=== PATIENT | male | born 1950 | race Two or more races ===

== ENCOUNTER 2018-09-19 12:04 | Inpatient (IN) | payer OTHER ==
[2018-09-19 14:58] VITALS: BMI 33.4
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
[2018-09-19] MEDS ORDERED: ONDANSETRON *ODT* 4 MG TABLET SL PRN (23:03)
[2018-09-19] MEDS ORDERED: MELATONIN 5 MG TABLETS PO PRN (23:03)
[2018-09-19] MEDS ORDERED: METHOCARBAMOL 500 MG TABLET PO PRN (23:03)
[2018-09-19] MEDS ORDERED: DICYCLOMINE HCL 10 MG CAPSULE PO PRN (23:03)
[2018-09-19] MEDS ORDERED: guaiFENesin 200 MG/10 ML 10 ML UNIT-DOSE CUPS PO PRN (23:03)
[2018-09-19] MEDS ORDERED: P-EPHED 60MG/TRIPROLIDI 2.5MG TABLET PO PRN (23:03)
[2018-09-19] MEDS ORDERED: IBUPROFEN 400 MG TABLET (FP) PO PRN ×2 (23:03)
[2018-09-19] MEDS ORDERED: MENTHOL/PHENOL 1 EACH UD MM PRN (23:03)
[2018-09-19] MEDS ORDERED: ACETAMINOPHEN 325 MG TABLET (FP) PO PRN ×2 (23:03)
[2018-09-19] MEDS ORDERED: MAGNESIUM CITRATE 300 ML BOTTLE PO PRN (23:03)
[2018-09-19] MEDS ORDERED: hydrOXYzine PAMOATE 25 MG CAPSULE (FP) PO PRN (23:03)
[2018-09-19] MEDS ORDERED: BISMUTH SUBSALICYLATE 524 MG/30 ML UD PO PRN (23:03)
[2018-09-19] MEDS ORDERED: chlordiazePOXIDE HCL 10 MG CAPSULE PO PRN (23:03)
[2018-09-19] MEDS ORDERED: NICOTINE POLACRILEX 2 MG GUM BUC PRN (23:03)
[2018-09-19] MEDS ORDERED: MAG HYDROX/AL HYDROX/SIMETH 30 ML UNIT-DOSE CUP PO PRN (23:03)
[2018-09-19] MEDS ORDERED: MAGNESIUM HYDROX 2400MG/30ML ORAL SUSPENSION 30 ML CUP PO PRN (23:03)
[2018-09-20] MEDS: chlordiazePOXIDE HCL 25 MG CAPSULE PO SCH ×4 (00:05→14:02)
[2018-09-20] MEDS ORDERED: METHADONE HCL 10 MG TABLET PO SCH (09:45)
[2018-09-20 10:04] LABS: HEMATOCRIT 34.2 % (35.4-49); HEMOGLOBIN 10.9 GM/dL (11.7-16.9); MCH 29.5 pg (25.7-33.7); MEAN CELL VOLUME 92.1 fl (80-96); MEAN PLT VOLUME 10.3 fl (7.5-11.1); PLATELET COUNT 200 K/MM3 (134-434); RBC 3.71 M/mm3 (4.00-5.60); RDW 14.2 % (11.9-15.9); WHITE BLOOD COUNT 4.7 K/mm3 (4.0-10.0)
[2018-09-20 10:17] LABS: ALBUMIN 3.4 g/dl (3.4-5.0); BILIRUBIN,TOTAL 0.2 mg/dL (0.2-1); CALCIUM 8.7 mg/dL (8.5-10.1); CREATININE 2.8 mg/dL (0.55-1.3); POTASSIUM 4.7 mmol/L (3.5-5.1); TOT PROT 7.7 g/dl (6.4-8.2)
[2018-09-20] MEDS ORDERED: METHADONE HCL 40 MG DISPERSABLE TABLET ONE (10:37)
[2018-09-20] MEDS ORDERED: METHADONE HCL 10 MG TABLET ONE (10:37)
[2018-09-20] MEDS: PRENATAL VITAMINS W/ FOLIC ACID TABLET (FP) PO SCH (10:45)
[2018-09-20] MEDS: METHADONE 80 MG, METHADONE 20 MG PO SCH (10:45)
[2018-09-20] MEDS: NICOTINE 14 MG/24 HOURS TOPICAL PATCH TD SCH (10:45)
--- NOTE | 2018-09-20 11:44 | PN ---
S CIWA - CIWA Score Nausea/Vomitin Muscle Tremors: 3 Anxiety: 3 Agitation: 2 Paroxysmal Sweats: 1-Minimal Palms Moist Orientation: 0-Oriented Tacttile Disturbances: 1-Very Mild Itch/Numbness Auditory Disturbances: 1-Very Mild Visual Disturbances: 0-None Headache: 2-Mild CIWA-Ar Total Score: 15 BHS Progress Note (SOAP) Subjective: alert,irritable,anxious,interrupted sleep,tremor,pain in the body Objective: 09/20/18 11:42 Vital Signs Temperature 97.7 F 09/20/18 09:17 Pulse Rate 41 L 09/20/18 09:17 Respiratory Rate 18 09/20/18 09:17 Blood Pressure 134/79 09/20/18 09:17 O2 Sat by Pulse Oximetry (%) 09/20/18 11:42 Laboratory Last Values WBC 4.7 K/mm3 (4.0-10.0) 09/20/18 07:00 RBC 3.71 M/mm3 (4.00-5.60) L 09/20/18 07:00 Hgb 10.9 GM/dL (11.7-16.9) L 09/20/18 07:00 Hct 34.2 % (35.4-49) L 09/20/18 07:00 MCV 92.1 fl (80-96) 09/20/18 07:00 MCH 29.5 pg (25.7-33.7) 09/20/18 07:00 MCHC 32.0 g/dl (32.0-35.9) 09/20/18 07:00 RDW 14.2 % (11.9-15.9) 09/20/18 07:00 Plt Count 200 K/MM3 (134-434) 09/20/18 07:00 MPV 10.3 fl (7.5-11.1) 09/20/18 07:00 Sodium 142 mmol/L (136-145) 09/20/18 07:00 Potassium 4.7 mmol/L (3.5-5.1) 09/20/18 07:00 Chloride 109 mmol/L (98-107) H 09/20/18 07:00 Carbon Dioxide 29 mmol/L (21-32) 09/20/18 07:00 Anion Gap 4 MMOL/L (8-16) L 09/20/18 07:00 BUN 31 mg/dL (7-18) H 09/20/18 07:00 Creatinine 2.8 mg/dL (0.55-1.3) H 09/20/18 07:00 Est GFR (CKD-EPI)AfAm 26.06 09/20/18 07:00 Est GFR (CKD-EPI)NonAf 22.49 09/20/18 07:00 POC Glucometer 153 UNITS (80-120) 09/19/18 16:26 Random Glucose 95 mg/dL (74-106) 09/20/18 07:00 Calcium 8.7 mg/dL (8.5-10.1) 09/20/18 07:00 Total Bilirubin 0.2 mg/dL (0.2-1) 09/20/18 07:00 AST 19 U/L (15-37) 09/20/18 07:00 ALT 18 U/L (13-61) 09/20/18 07:00 Alkaline Phosphatase 72 U/L (45-117) 09/20/18 07:00 Total Protein 7.7 g/dl (6.4-8.2) 09/20/18 07:00 Albumin 3.4 g/dl (3.4-5.0) 09/20/18 07:00 Assessment: 09/20/18 11:43 withdrawal symptom Plan: continue detox,fasting glucose in am,bgm daily monitoring
--- NOTE | 2018-09-20 11:56 | PN ---
S Progress Note Note: more information patient has hypertension,hypercholesterolemia,iddm,positive ppd. bipolar disorder,up date medications and psychiatric consultation
[2018-09-20 13:10] LABS: URINE APPEARANCE CLEAR; URINE BILIRUBIN NEGATIVE (NEGATIVE); URINE COLOR YELLOW; URINE GLUCOSE (UA) NEGATIVE (NEGATIVE); URINE KETONE NEGATIVE (NEGATIVE); URINE LEUK ESTERASE NEGATIVE (NEGATIVE); URINE NITRITE NEGATIVE (NEGATIVE); URINE PROTEIN TRACE (NEGATIVE); URINE UROBILINOGEN 0.2 mg/dL (0.2-1.0)
--- NOTE | 2018-09-20 14:50 | EKG ---
Test Reason : Blood Pressure : / mmHG Vent. Rate : 040 BPM Atrial Rate : 040 BPM P-R Int : 210 ms QRS Dur : 086 ms QT Int : 522 ms P-R-T Axes : 058 037 055 degrees QTc Int : 425 ms MARKED SINUS BRADYCARDIA WITH 1ST DEGREE A-V BLOCK NONSPECIFIC T WAVE ABNORMALITY ABNORMAL ECG NO PREVIOUS ECGS AVAILABLE Confirmed by CAROLINE REYNAGA MD ([id number]) on 09/20/2018 2:50:02 PM Referred By: MARGOT Confirmed By:CAROLINE REYNAGA MD
[2018-09-20] MEDS: chlordiazePOXIDE 5 MG CAPSULE PO SCH (22:09)
[2018-09-20] MEDS: ATORVASTATIN CA 10 MG TABLET (FP) PO SCH (22:10)
[2018-09-20] MEDS: THIAMINE HCL 100 MG TABLET (FP) PO SCH (22:10)
[2018-09-21] MEDS ORDERED: METHADONE HCL 40 MG DISPERSABLE TABLET ONE (04:55)
[2018-09-21] MEDS ORDERED: METHADONE HCL 10 MG TABLET ONE (04:55)
[2018-09-21] MEDS: METHADONE 80 MG, METHADONE 20 MG PO SCH (05:48)
[2018-09-21] MEDS: chlordiazePOXIDE 5 MG CAPSULE PO SCH ×2 (05:48→13:53)
[2018-09-21] MEDS: amLODIPine BESYLATE 10 MG TABLET (FP) PO SCH (10:07)
[2018-09-21] MEDS: ASPIRIN 81 MG CHEWABLE TABLETS PO SCH (10:07)
[2018-09-21] MEDS: LISINOPRIL 20 MG TABLET (FP) PO SCH (10:07)
[2018-09-21] MEDS: PRENATAL VITAMINS W/ FOLIC ACID TABLET (FP) PO SCH (10:07)
[2018-09-21] MEDS: NICOTINE 14 MG/24 HOURS TOPICAL PATCH TD SCH (10:08)
--- NOTE | 2018-09-21 13:02 | CONSULT ---
[facility] Psychiatric Consult - Data Date of interview: 09/21/18 Admission source: [facility] Identifying data: First admission to [facility] for this 68 y/o male self-referred for detoxification treatment (heroin, cocaine, alcohol). Examined at [address] [place] [address]. Patient is single, no dependents, domiciled, unemployed and supported on [facility] benefits. Substance Abuse History: Discussed with patient in this session. Mr Bass reports an extensive history of substance abuse (consumes 1-2 pints of whiskey + two 6-packs of beer + one bottle of wine daily since age 42). Patient is currently on methadone maintenance (100 mg/day) at [facility] ([facility]) in [facility]. Medical History: Diabetes mellitus + hypertension. Psychiatric History: No reported history of psychiatric hospitalizations. Patient endorses the diagnosis of schizoaffective disorder. Medicated with paxil 20 mg/day + risperdal 2 mg/hs (not taken for past two months). Mr Bass explains that he just got released from [facility] " a little over a month ago ". Patient plans to resume follow-up with his psychiatrist at [facility] program. No history of suicide attempts. Physical/Sexual Abuse/Trauma History: Patient denies. Additional Comment: Urine drug screen results: LUCERO-Cocaine, MTD-Methadone Mental Status Exam - Mental Status Exam Alert and Oriented to: Time, Place, Person Cognitive Function: Good Patient Appearance: Well Groomed Mood: Apprehensive, Hopeful Affect: Appropriate, Normal Range Patient Behavior: Appropriate, Cooperative Speech Pattern: Clear (taiwanese-fluent), Appropriate Voice Loudness: Normal Thought Process: Intact, Goal Oriented Thought Disorder: Not Present Hallucinations: Denies Suicidal Ideation: Denies Homicidal Ideation: Denies Insight/Judgement: Poor Sleep: Well Appetite: Good Muscle strength/Tone: Normal Gait/Station: Normal Psychiatric Findings - Problem List ([place] 1, 2,3) (1) Alcohol withdrawal Current Visit: Yes Status: Acute Qualifiers: Complication of substance-induced condition: uncomplicated Qualified Code(s ): F10.230 - Alcohol dependence with withdrawal, uncomplicated (2) Opioid dependence on agonist therapy Current Visit: Yes Status: Chronic (3) Cocaine abuse Current Visit: Yes Status: Chronic (4) Nicotine dependence Current Visit: Yes Status: Chronic Qualifiers: Nicotine product type: cigarettes (5) Substance induced mood disorder Current Visit: Yes Status: Chronic (6) History of schizoaffective disorder Current Visit: Yes Status: Chronic - Initial Treatment Plan Initial Treatment Plan: Psychoeducation. Sleep hygiene. Detoxification. AA/NA meetings. Medications resumed as risperdal 0.5 mg po bid + paxil 10 mg po daily. Side effects/effects of both drugs are discussed with patient. Consent ( verbal) given to MD. Observation.
--- NOTE | 2018-09-21 15:00 | PN ---
S CIWA - CIWA Score Nausea/Vomitin-No Nausea/No Vomiting Muscle Tremors: 2 Anxiety: 2 Agitation: 0-Normal Activity Paroxysmal Sweats: 3 Orientation: 0-Oriented Tacttile Disturbances: 0-None Auditory Disturbances: 0-None Visual Disturbances: 3-Moderate Sensitivity Headache: 0-None Present CIWA-Ar Total Score: 10 BHS Progress Note (SOAP) Subjective: Sweating, Diarrhea, Anxious. Objective: PATIENT A & O X 3, OBSERVED AMBULATING ON UNIT UNASSISTED. IN NO ACUTE DISTRESS. 09/21/18 14:55 Vital Signs Temperature 97.0 F L 09/21/18 10:23 Pulse Rate 51 L 09/21/18 10:23 Respiratory Rate 18 09/21/18 10:23 Blood Pressure 154/89 09/21/18 10:23 O2 Sat by Pulse Oximetry (%) Laboratory Tests 09/19/18 09/20/18 09/20/18 16:26 05:32 07:00 WBC 4.7 RBC 3.71 L Hgb 10.9 L Hct 34.2 L MCV 92.1 MCH 29.5 MCHC 32.0 RDW 14.2 Plt Count 200 MPV 10.3 Sodium Potassium Chloride Carbon Dioxide Anion Gap BUN Creatinine Est GFR (CKD-EPI)AfAm Est GFR (CKD-EPI)NonAf POC Glucometer 153 102 Random Glucose Calcium Total Bilirubin AST ALT Alkaline Phosphatase Total Protein Albumin Urine Color Urine Appearance Urine pH Ur Specific [place] Urine Protein Urine Glucose (UA) Urine Ketones Urine Blood Urine Nitrite Urine Bilirubin Urine Urobilinogen Ur Leukocyte Esterase RPR Titer 09/20/18 09/20/18 09/20/18 07:00 07:00 08:25 WBC RBC Hgb Hct MCV MCH MCHC RDW Plt Count MPV Sodium 142 Potassium 4.7 Chloride 109 H Carbon Dioxide 29 Anion Gap 4 L BUN 31 H Creatinine 2.8 H Est GFR (CKD-EPI)AfAm 26.06 Est GFR (CKD-EPI)NonAf 22.49 POC Glucometer Random Glucose 95 Calcium 8.7 Total Bilirubin 0.2 AST 19 ALT 18 Alkaline Phosphatase 72 Total Protein 7.7 Albumin 3.4 Urine Color Yellow Urine Appearance Clear Urine pH 6.0 Ur Specific [place] 1.017 Urine Protein Trace Urine Glucose (UA) Negative Urine Ketones Negative Urine Blood Negative Urine Nitrite Negative Urine Bilirubin Negative Urine Urobilinogen 0.2 Ur Leukocyte Esterase Negative RPR Titer Nonreactive 09/20/18 22:12 WBC RBC Hgb Hct MCV MCH MCHC RDW Plt Count MPV Sodium Potassium Chloride Carbon Dioxide Anion Gap BUN Creatinine Est GFR (CKD-EPI)AfAm Est GFR (CKD-EPI)NonAf POC Glucometer 78 Random Glucose Calcium Total Bilirubin AST ALT Alkaline Phosphatase Total Protein Albumin Urine Color Urine Appearance Urine pH Ur Specific [place] Urine Protein Urine Glucose (UA) Urine Ketones Urine Blood Urine Nitrite Urine Bilirubin Urine Urobilinogen Ur Leukocyte Esterase RPR Titer LABS NOTED. Assessment: 09/21/18 14:56 WITHDRAWAL SYMPTOMS. ANEMIA. Plan: CONTINUE DETOX. D/C IBUPROFEN AND MAGNESIUM-CONTAINING MEDS. FOR ABNORMAL ADMISSION RENAL LAB VALUES. PATIENT IS CURRENTLY RECEIVING DAILY MVI CONTAINING B VITAMINS AND IRON WHILE ADMITTED FOR DETOX. [facility] TOMORROW AM FOR ABNORMAL ADMISSION RENAL LAB VALUES. PATIENT REPORTS HISTORY OF INTERMITTENT SWELLING RIGHT LOWER LEG X APPROX. 1 MONTH. PATIENT NOTES THAT SWELLING TENDS TO BE MORE PRONOUNCED AFTER STANDING / WALKING FOR EXTENDED PERIODS. PATIENT HAS FULL ROM OF RIGHT FOOT AND TOES. MILD SWELLING NOTED IN RIGHT LOWER LEG. NO ERYTHEMA NOTED. PATIENT HAD BEEN EVALUATED AT [facility] ER FOR THIS MATTER JUST BEFORE ADMISSION TO DETOX. NO DVT OR BONE FRACTURE WAS NOTED IN TIGHT LEG. PATIENT ADVISED TO FOLLOW-UP WITH FILTER SCREEN CLEANER AFTER DISCHARGE FROM DETOX FOR GENERAL MEDICAL ASSESSMENT AND FOR HISTORY OF SWELLING IN RIGHT LOWER LEG. PATIENT VERBALIZED UNDERSTANDING OF RECOMMENDATION.
[2018-09-21] MEDS ORDERED: chlordiazePOXIDE HCL 10 MG CAPSULE PO PRN (21:00)
[2018-09-21] MEDS: chlordiazePOXIDE HCL 10 MG CAPSULE PO SCH (22:28)
[2018-09-21] MEDS: THIAMINE HCL 100 MG TABLET (FP) PO SCH (22:28)
[2018-09-21] MEDS: ATORVASTATIN CA 10 MG TABLET (FP) PO SCH (22:45)
[2018-09-21] MEDS: risperiDONE 0.5 MG TABLET (FP) PO SCH (22:45)
[2018-09-22] MEDS ORDERED: METHADONE HCL 10 MG TABLET ONE (04:56)
[2018-09-22] MEDS ORDERED: METHADONE HCL 40 MG DISPERSABLE TABLET ONE (04:56)
[2018-09-22] MEDS: chlordiazePOXIDE HCL 10 MG CAPSULE PO SCH ×3 (05:21→22:30)
[2018-09-22] MEDS: METHADONE 80 MG, METHADONE 20 MG PO SCH (05:21)
[2018-09-22] MEDS ORDERED: PARoxetine HCL 10 MG TABLET (FP) PO SCH (10:00)
[2018-09-22] MEDS: amLODIPine BESYLATE 10 MG TABLET (FP) PO SCH (10:06)
[2018-09-22] MEDS: PRENATAL VITAMINS W/ FOLIC ACID TABLET (FP) PO SCH (10:06)
[2018-09-22] MEDS: ASPIRIN 81 MG CHEWABLE TABLETS PO SCH (10:06)
[2018-09-22] MEDS: LISINOPRIL 20 MG TABLET (FP) PO SCH (10:06)
[2018-09-22] MEDS: NICOTINE 14 MG/24 HOURS TOPICAL PATCH TD SCH (10:07)
[2018-09-22] MEDS: risperiDONE 0.5 MG TABLET (FP) PO SCH ×2 (10:07→22:31)
[2018-09-22 10:47] LABS: CALCIUM 8.7 mg/dL (8.5-10.1); CREATININE 2.3 mg/dL (0.55-1.3); POTASSIUM 4.8 mmol/L (3.5-5.1)
--- NOTE | 2018-09-22 15:07 | PN ---
S CIWA - CIWA Score Nausea/Vomitin-Mild Nausea/No Vomiting Muscle Tremors: 2 Anxiety: 1-Mildly Anxious Agitation: 2 Paroxysmal Sweats: 1-Minimal Palms Moist Orientation: 0-Oriented Tacttile Disturbances: 0-None Auditory Disturbances: 0-None Visual Disturbances: 0-None Headache: 0-None Present CIWA-Ar Total Score: 7 S Progress Note (SOAP) Subjective: feeling better today discuss aftercare with staff social with peers in day room Objective: 09/22/18 15:06 Vital Signs Temperature 97.8 F 09/22/18 13:15 Pulse Rate 65 09/22/18 13:15 Respiratory Rate 18 09/22/18 13:15 Blood Pressure 137/80 09/22/18 13:15 O2 Sat by Pulse Oximetry (%) Laboratory Last Values WBC 4.7 K/mm3 (4.0-10.0) 09/20/18 07:00 RBC 3.71 M/mm3 (4.00-5.60) L 09/20/18 07:00 Hgb 10.9 GM/dL (11.7-16.9) L 09/20/18 07:00 Hct 34.2 % (35.4-49) L 09/20/18 07:00 MCV 92.1 fl (80-96) 09/20/18 07:00 MCH 29.5 pg (25.7-33.7) 09/20/18 07:00 MCHC 32.0 g/dl (32.0-35.9) 09/20/18 07:00 RDW 14.2 % (11.9-15.9) 09/20/18 07:00 Plt Count 200 K/MM3 (134-434) 09/20/18 07:00 MPV 10.3 fl (7.5-11.1) 09/20/18 07:00 Sodium 142 mmol/L (136-145) 09/22/18 07:40 Potassium 4.8 mmol/L (3.5-5.1) 09/22/18 07:40 Chloride 108 mmol/L (98-107) H 09/22/18 07:40 Carbon Dioxide 32 mmol/L (21-32) 09/22/18 07:40 Anion Gap 2 MMOL/L (8-16) L 09/22/18 07:40 BUN 27 mg/dL (7-18) H 09/22/18 07:40 Creatinine 2.3 mg/dL (0.55-1.3) H 09/22/18 07:40 Est GFR (CKD-EPI)AfAm 33.06 09/22/18 07:40 Est GFR (CKD-EPI)NonAf 28.53 09/22/18 07:40 POC Glucometer 83 UNITS (80-120) 09/22/18 07:13 Random Glucose 90 mg/dL (74-106) 09/22/18 07:40 Calcium 8.7 mg/dL (8.5-10.1) 09/22/18 07:40 Total Bilirubin 0.2 mg/dL (0.2-1) 09/20/18 07:00 AST 19 U/L (15-37) 09/20/18 07:00 ALT 18 U/L (13-61) 09/20/18 07:00 Alkaline Phosphatase 72 U/L (45-117) 09/20/18 07:00 Total Protein 7.7 g/dl (6.4-8.2) 09/20/18 07:00 Albumin 3.4 g/dl (3.4-5.0) 09/20/18 07:00 Urine Color Yellow 09/20/18 08:25 Urine Appearance Clear 09/20/18 08:25 Urine pH 6.0 (5.0-8.0) 09/20/18 08:25 Ur Specific [place] 1.017 (1.010-1.035) 09/20/18 08:25 Urine Protein Trace (NEGATIVE) 09/20/18 08:25 Urine Glucose (UA) Negative (NEGATIVE) 09/20/18 08:25 Urine Ketones Negative (NEGATIVE) 09/20/18 08:25 Urine Blood Negative (NEGATIVE) 09/20/18 08:25 Urine Nitrite Negative (NEGATIVE) 09/20/18 08:25 Urine Bilirubin Negative (NEGATIVE) 09/20/18 08:25 Urine Urobilinogen 0.2 mg/dL (0.2-1.0) 09/20/18 08:25 Ur Leukocyte Esterase Negative (NEGATIVE) 09/20/18 08:25 RPR Titer Nonreactive (NONREACTIVE) 09/20/18 07:00 lab noted Assessment: 09/22/18 15:06 withdrawal sx Plan: continue detox
[2018-09-22] MEDS: THIAMINE HCL 100 MG TABLET (FP) PO SCH (22:30)
[2018-09-22] MEDS: ATORVASTATIN CA 10 MG TABLET (FP) PO SCH (22:33)
[2018-09-23] MEDS ORDERED: METHADONE HCL 10 MG TABLET ONE (04:41)
[2018-09-23] MEDS ORDERED: METHADONE HCL 40 MG DISPERSABLE TABLET ONE (04:42)
[2018-09-23] MEDS: METHADONE 80 MG, METHADONE 20 MG PO SCH (05:09)
[2018-09-23 09:04] VITALS: BP 143/87; PULSE 59; TEMP 97.9
--- NOTE | 2018-09-23 15:23 | DS ---
[facility] Detox Discharge Summary Admission Date: 09/19/18 Discharge Date: 09/23/18 - History Present History: Alcohol Dependence Additional Comments: 68 years old male admitted on 09/19/18 for alcohol withdrawal stabilization completed detox regimen aftercare community self help group Pertinent Past History: bring in medication list and lab report to follow up appointmetn patient agrees to return to methadone program for medical and mental issues - Physical Exam Results Vital Signs: Vital Signs Temperature 97.9 F 09/23/18 09:03 Pulse Rate 59 L 09/23/18 09:03 Respiratory Rate 18 09/23/18 09:03 Blood Pressure 143/87 09/23/18 09:03 O2 Sat by Pulse Oximetry (%) Pertinent Admission Physical Exam Findings: alcohol withdrawal sx Vital Signs Temperature 97.9 F 09/23/18 09:03 Pulse Rate 59 L 09/23/18 09:03 Respiratory Rate 18 09/23/18 09:03 Blood Pressure 143/87 09/23/18 09:03 O2 Sat by Pulse Oximetry (%) Laboratory Last Values WBC 4.7 K/mm3 (4.0-10.0) 09/20/18 07:00 RBC 3.71 M/mm3 (4.00-5.60) L 09/20/18 07:00 Hgb 10.9 GM/dL (11.7-16.9) L 09/20/18 07:00 Hct 34.2 % (35.4-49) L 09/20/18 07:00 MCV 92.1 fl (80-96) 09/20/18 07:00 MCH 29.5 pg (25.7-33.7) 09/20/18 07:00 MCHC 32.0 g/dl (32.0-35.9) 09/20/18 07:00 RDW 14.2 % (11.9-15.9) 09/20/18 07:00 Plt Count 200 K/MM3 (134-434) 09/20/18 07:00 MPV 10.3 fl (7.5-11.1) 09/20/18 07:00 Sodium 142 mmol/L (136-145) 09/22/18 07:40 Potassium 4.8 mmol/L (3.5-5.1) 09/22/18 07:40 Chloride 108 mmol/L (98-107) H 09/22/18 07:40 Carbon Dioxide 32 mmol/L (21-32) 09/22/18 07:40 Anion Gap 2 MMOL/L (8-16) L 09/22/18 07:40 BUN 27 mg/dL (7-18) H 09/22/18 07:40 Creatinine 2.3 mg/dL (0.55-1.3) H 09/22/18 07:40 Est GFR (CKD-EPI)AfAm 33.06 09/22/18 07:40 Est GFR (CKD-EPI)NonAf 28.53 09/22/18 07:40 POC Glucometer 77 UNITS (80-120) 09/23/18 05:08 Random Glucose 90 mg/dL (74-106) 09/22/18 07:40 Calcium 8.7 mg/dL (8.5-10.1) 09/22/18 07:40 Total Bilirubin 0.2 mg/dL (0.2-1) 09/20/18 07:00 AST 19 U/L (15-37) 09/20/18 07:00 ALT 18 U/L (13-61) 09/20/18 07:00 Alkaline Phosphatase 72 U/L (45-117) 09/20/18 07:00 Total Protein 7.7 g/dl (6.4-8.2) 09/20/18 07:00 Albumin 3.4 g/dl (3.4-5.0) 09/20/18 07:00 Urine Color Yellow 09/20/18 08:25 Urine Appearance Clear 09/20/18 08:25 Urine pH 6.0 (5.0-8.0) 09/20/18 08:25 Ur Specific [place] 1.017 (1.010-1.035) 09/20/18 08:25 Urine Protein Trace (NEGATIVE) 09/20/18 08:25 Urine Glucose (UA) Negative (NEGATIVE) 09/20/18 08:25 Urine Ketones Negative (NEGATIVE) 09/20/18 08:25 Urine Blood Negative (NEGATIVE) 09/20/18 08:25 Urine Nitrite Negative (NEGATIVE) 09/20/18 08:25 Urine Bilirubin Negative (NEGATIVE) 09/20/18 08:25 Urine Urobilinogen 0.2 mg/dL (0.2-1.0) 09/20/18 08:25 Ur Leukocyte Esterase Negative (NEGATIVE) 09/20/18 08:25 RPR Titer Nonreactive (NONREACTIVE) 09/20/18 07:00 lab noted patient agrees to bring in lab report to primary care provider - Treatment Hospital Course: Detox Protocol Followed, Detoxed Safely, Responded well, Discharged Condition Good, Rehab Referral Accepted Patient has Accepted a Rehab Referral to: community self support group - Medication Discharge Medications: Ambulatory Orders Amlodipine Besylate 10 mg PO DAILY 09/20/18 Aspirin 81 mg PO DAILY 09/20/18 Insulin Glargine,Hum.rec.anlog [Lantus] 30 units SQ HS 09/20/18 Lisinopril 20 mg PO DAILY 09/20/18 Paroxetine HCl 20 mg PO DAILY 09/20/18 Risperidone [Risperdal] 2 mg PO DAILY 09/20/18 Simvastatin 20 mg PO HS 09/20/18 - Diagnosis (1) Alcohol withdrawal Status: Acute Qualifiers: Complication of substance-induced condition: uncomplicated Qualified Code(s ): F10.230 - Alcohol dependence with withdrawal, uncomplicated (2) Hypertension Status: Chronic Qualifiers: Hypertension type: essential hypertension Qualified Code(s): I10 - Essential (primary) hypertension (3) Nicotine dependence Status: Acute Qualifiers: Nicotine product type: cigarettes Substance use status: in withdrawal Qualified Code(s): F17.213 - Nicotine dependence, cigarettes, with withdrawal (4) Substance induced mood disorder Status: Suspected (5) Methadone maintenance therapy patient Status: Chronic - AMA Did Patient Leave Against Medical Advice: No
== END 2018-09-23 09:13 | disposition home or self-care (01) | DRG 897 ==
LOC: YASAS 12:04 → UNDOADMIN 18:06 → Y3W 18:06 → Y3N 22:29
PROVIDERS: ADMIT Surgery; ATTEND Surgery
PROC: HZ2ZZZZ Detoxification Services for Substance Abuse Treatment (ICD-10-PCS; principal; 2018-09-19)
DX: F10.230 Alcohol dependence with withdrawal, uncomplicated (principal); F11.20 Opioid dependence, uncomplicated; F14.10 Cocaine abuse, uncomplicated; F17.213 Nicotine dependence, cigarettes, with withdrawal; F19.24 Other psychoactive substance dependence with psychoactive substance-induced mood disorder; I10 Essential (primary) hypertension; D64.9 Anemia, unspecified; E11.9 Type 2 diabetes mellitus without complications; Z79.4 Long term (current) use of insulin
CPT/HCPCS: 36415; 71046-TC-FY; 73590-TC-RT-FY; 80048; 80053; 81003; 82962; 85027; 86593; 93005; 93010; 93971-TC; 99282-25

== ENCOUNTER 2018-09-19 17:11 | Emergency (ER) | payer SELFPAY, OTHER | END 2018-09-19 22:14 | disposition home or self-care (01) | LOC: JER 17:11 ==

== ENCOUNTER 2018-10-05 16:54 | Inpatient (IN) | payer OTHER | END 2018-10-06 10:45 | disposition left against medical advice (07) | LOC: YASAS 16:54 → Y3N 18:39 ==

== ENCOUNTER 2022-01-09 10:24 | Inpatient (IN) | payer OTHER ==
[2022-01-09 11:13] VITALS: BMI 28.1
[2022-01-09] MEDS ORDERED: BUPRENORPHINE HCL 150 MCG, BUPRENORPHINE HCL 75 MCG BC PRN (13:03)
[2022-01-09] MEDS ORDERED: LOPERAMIDE HCL 2 MG CAPSULE PO PRN (13:03)
[2022-01-09] MEDS ORDERED: MAGNESIUM HYDROX 2400MG/30ML ORAL SUSPENSION 30 ML CUP PO PRN (13:03)
[2022-01-09] MEDS ORDERED: METHOCARBAMOL 500 MG TABLET PO PRN (13:03)
[2022-01-09] MEDS ORDERED: NICOTINE 10 MG CARTRIDGE (INHALER) IH PRN (13:03)
[2022-01-09] MEDS ORDERED: ACETAMINOPHEN 325 MG TABLET (FP) PO PRN ×2 (13:03)
[2022-01-09] MEDS ORDERED: DICYCLOMINE HCL 10 MG CAPSULE PO PRN (13:03)
[2022-01-09] MEDS ORDERED: BUPRENORPHINE HCL 150 MCG, BUPRENORPHINE HCL 75 MCG BC ONE (13:03)
[2022-01-09] MEDS ORDERED: IBUPROFEN 600 MG TABLET (FP) PO PRN (13:03)
[2022-01-09] MEDS ORDERED: BISMUTH SUBSALICYLATE 524 MG/30 ML PO PRN (13:03)
[2022-01-09] MEDS ORDERED: cloNIDine HCL 0.1 MG TABLET PO ONE (13:03)
[2022-01-09] MEDS ORDERED: LORazepam 1 MG TABLET PO PRN (13:03)
[2022-01-09] MEDS ORDERED: ONDANSETRON *ODT* 4 MG TABLET SL PRN (13:03)
[2022-01-09] MEDS ORDERED: BENZOCAINE/MENTHOL (CHLORASEPTIC ) LOZENGE MM PRN (13:03)
[2022-01-09] MEDS ORDERED: MAGNESIUM CITRATE 300 ML BOTTLE PO PRN (13:03)
[2022-01-09] MEDS ORDERED: NALOXONE HCL (KLOXXADO) 8 MG SPRAY NS PRN (13:03)
[2022-01-09] MEDS ORDERED: IBUPROFEN 400 MG TABLET (FP) PO PRN (13:03)
[2022-01-09] MEDS ORDERED: MAG HYDROX/AL HYDROX/SIMETH 30 ML UNIT-DOSE CUP PO PRN (13:03)
[2022-01-09] MEDS ORDERED: diazePAM 5 MG TABLET PO PRN (13:03)
[2022-01-09] MEDS ORDERED: hydrOXYzine PAMOATE 25 MG CAPSULE (FP) PO SCH (14:00)
[2022-01-09 14:04] VITALS: TEMP 96.9
[2022-01-09 14:14] VITALS: PULSE 41; RESP 16
[2022-01-09] MEDS ORDERED: LORazepam 2 MG TABLET PO ONE (14:25)
[2022-01-09] MEDS ORDERED: PRENATAL VITAMINS W/ FOLIC ACID TABLET (FP) PO SCH (14:45)
[2022-01-09 14:54] VITALS: BP 170/79
[2022-01-09] MEDS ORDERED: NICOTINE 14 MG/24 HOURS TOPICAL PATCH TD SCH (15:00)
[2022-01-09] MEDS ORDERED: LORazepam 2 MG TABLET PO SCH (17:00)
[2022-01-09] MEDS ORDERED: cloNIDine HCL 0.1 MG TABLET PO PRN (17:03)
[2022-01-09 17:50] LABS: HEMATOCRIT 34.9 % (35.4-49); HEMOGLOBIN 11.4 GM/dL (11.7-16.9); MCH 30.2 pg (25.7-33.7); MCHC 32.5 g/dl (32.0-35.9); MEAN CELL VOLUME 92.7 fl (80-96); MEAN PLT VOLUME 10.4 fl (7.5-11.1); PLATELET COUNT 172 10^3/uL (134-434); RBC 3.77 M/mm3 (4.00-5.60); RDW 15.1 % (11.9-15.9); WHITE BLOOD COUNT 4.4 K/mm3 (4.0-10.0)
[2022-01-09 17:54] LABS: ALBUMIN 3.8 g/dl (3.4-5.0); CALCIUM 9.1 mg/dL (8.5-10.1)
[2022-01-09 17:55] LABS: BLOOD UREA NITROGEN 31.6 mg/dL (7-18)
[2022-01-09 17:56] LABS: CREATININE 2.8 mg/dL (0.55-1.3)
[2022-01-09 17:58] LABS: BILIRUBIN,TOTAL 0.4 mg/dL (0.2-1); TOT PROT 8.7 g/dl (6.4-8.2)
[2022-01-09] MEDS ORDERED: MELATONIN 5 MG TABLETS PO SCH (22:00)
[2022-01-09] MEDS ORDERED: THIAMINE HCL 100 MG TABLET (FP) PO SCH (22:00)
[2022-01-09] MEDS ORDERED: ATORVASTATIN CA 10 MG TABLET (FP) PO SCH (22:00)
[2022-01-10] MEDS ORDERED: BUPRENORPHINE HCL 150 MCG, BUPRENORPHINE HCL 75 MCG BC PRN
[2022-01-10] MEDS ORDERED: BUPRENORPHINE HCL 150 MCG, BUPRENORPHINE HCL 75 MCG BC SCH (06:00)
[2022-01-10] MEDS ORDERED: amLODIPine BESYLATE 10 MG TABLET (FP) PO SCH (10:00)
[2022-01-10] MEDS ORDERED: ASPIRIN 81 MG CHEWABLE TABLETS PO SCH (10:00)
[2022-01-10] MEDS ORDERED: LISINOPRIL 20 MG TABLET PO SCH (10:00)
[2022-01-11] MEDS ORDERED: LORazepam 1 MG TABLET PO SCH (05:00)
[2022-01-11] MEDS ORDERED: BUPRENORPHINE HCL 450 MCG FILM BC SCH (06:00)
[2022-01-12] MEDS ORDERED: LORazepam 0.5 MG TABLET PO PRN
[2022-01-12] MEDS ORDERED: LORazepam 0.5 MG TABLET PO SCH (05:00)
[2022-01-12] MEDS ORDERED: BUPRENORPHINE/NALOXONE 4 MG/1 MG FILM PACKET SL SCH (06:00)
[2022-01-13] MEDS ORDERED: LORazepam 0.5 MG TABLET PO ONE (05:00)
[2022-01-13] MEDS ORDERED: BUPRENORPHINE/NALOXONE 8 MG/2 MG FILM PACKET SL ONE (06:00)
== END 2022-01-09 15:24 | disposition short-term general hospital (02) | DRG 897 ==
LOC: YASAS 10:24 → Y3N 13:19
PROVIDERS: ADMIT Allergy & Immunology; ATTEND Surgery
PROC: HZ2ZZZZ Detoxification Services for Substance Abuse Treatment (ICD-10-PCS; principal; 2022-01-09)
DX: F10.230 Alcohol dependence with withdrawal, uncomplicated (principal); F11.20 Opioid dependence, uncomplicated; F14.20 Cocaine dependence, uncomplicated; F17.210 Nicotine dependence, cigarettes, uncomplicated; F25.9 Schizoaffective disorder, unspecified; I44.0 Atrioventricular block, first degree; I10 Essential (primary) hypertension; J45.909 Unspecified asthma, uncomplicated; E11.9 Type 2 diabetes mellitus without complications; R00.1 Bradycardia, unspecified; Z28.310 Unvaccinated for COVID-19; Z28.9 Immunization not carried out for unspecified reason; Z86.11 Personal history of tuberculosis; Z87.828 Personal history of other (healed) physical injury and trauma
CPT/HCPCS: 36415; 80053; 85027; 86593; 86780; 93005; 93010; C9803-CS; U0003; U0005